=== PATIENT | male | born 1990 | race Caucasian/White ===

== ENCOUNTER 2020-08-13 11:43 | Day surgery (SDC) | payer SELFPAY ==
[2020-08-13] MEDS ORDERED: Dexamethasone 20 MG/5 ML VIAL ONE (12:04)
[2020-08-13] MEDS ORDERED: PROPOFOL 200 MG/20 ML VIAL ONE (12:04)
[2020-08-13] MEDS ORDERED: Ondansetron PF 4 MG/2 ML Vial ONE (12:04)
[2020-08-13] MEDS ORDERED: Lidocaine 1% PF 5 ML VIAL ONE (12:04)
[2020-08-13] MEDS ORDERED: Ketorolac Tromethamine 30 MG/ML VIAL ONE (12:04)
[2020-08-13] MEDS ORDERED: Fentanyl 100 MCG/2 ML VIAL ONE (13:32)
[2020-08-13] MEDS ORDERED: Lidocaine 1% (PF) 30 ML VIAL ONE (13:52)
[2020-08-13] MEDS ORDERED: Bupivacaine 0.25% HCL 30 ML VIAL ONE (13:52)
--- NOTE | 2020-08-13 14:34 | RAD ---
Left hand 2 views intraoperative fluoroscopy HISTORY: Metallic foreign body. FINDINGS: Intraoperative fluoroscopy was provided for intraoperative procedure as performed by Dr. Gurjit keane. Spot fluoroscopic images of the index finger reveal no persistent metallic foreign body (as seen on radiograph from 08/12/2020). Fluoroscopy time 4 seconds.
--- NOTE | 2020-08-13 15:48 | OP ---
DATE OF PROCEDURE: 08/13/2020 PREOPERATIVE DIAGNOSIS: Left index finger cellulitis and associated foreign body. POSTOPERATIVE DIAGNOSES: 1. Left index finger cellulitis. 2. Left index finger metallic foreign body. PROCEDURE: 1. Incision drainage and washout, left index finger abscess. 2. Removal of metallic foreign body, left index finger. ANESTHESIA: Local and general. TOURNIQUET TIME: 11 minutes. ESTIMATED BLOOD LOSS: Less than 5 mL. FINDINGS: There appeared to be hypothermic needle tip imbedded within the soft tissues over the dorsum of the left index finger proximal phalangeal region. There is mild purulence associated and surrounding the metallic foreign body superficial to the extensor tendon mechanism around the proximal phalangeal region of the left index finger. SPECIMENS: Culture and sensitivities as well as metallic foreign body needle tip. CONDITION: Stable. INDICATIONS FOR PROCEDURE: The patient is a 30-year-old right-hand dominant male who works at [employer]. He states that he was building a snowman over the weekend when he felt something metallic break off into the skin. He was seen at the [facility] ER Dr. Catia Laura; secured the patient and gave me a call. Worried about cellulitis of the left index finger as the patient was complaining of redness and swelling and pain in the left index finger. He took an x-ray, which showed a metallic foreign body in the left index finger. The patient followed up in my clinic 1st thing this morning. I recommended surgical incision and drainage of the left index finger as well as removal of the metallic foreign body. I discussed all risks and goals associated with the surgery. On clinical examination, the patient had ecchymosis over the volar flexor forearm and there were old healed scars over the left forearm as well as the right forearm. His upper extremities were covered in tattoos as well. There is a point tenderness to the left index finger dorsum around the proximal phalangeal region. There is surrounding erythema around the puncture wound. There is no clinical evidence of flexor tenosynovitis. There was no adenopathy appreciated within the elbow, epitrochlear, or the axillary region. I did not offer any guarantees after today's surgery nor were any implied. The patient voiced understanding and agreed to proceed. He was given preoperative antibiotics. DESCRIPTION OF PROCEDURE: He was brought to the operating room, placed supine on the operating room table. Time-out was performed. Anesthesia was induced by the anesthesia team. A left upper extremity tourniquet was applied. The left upper extremity was prepped and draped under sterile aseptic conditions. Left upper extremity was exsanguinated by gravity and the tourniquet was inflated to 250 mmHg. 1% plain and 4% plain lidocaine and bupivacaine mixture were then infiltrated into the skin around the puncture wound and used as local anesthetic. I used a 15 blade scalpel to longitudinally incise the skin around the puncture wound, left index finger dorsum proximal phalangeal region. There was purulence noted within the soft tissues. This was sent for culture and sensitivities. I then noted a metallic foreign body which was removed using a mosquito clamp. It was removed in its entirety. It appeared to have the appearance of a hypodermic needle which was bent and broken. C-arm was used to confirm complete removal of the foreign body and its multiple planes of view were taken and saved by the C-arm. The wound was irrigated thoroughly using sterile saline solution. I packed the wound and closed it loosely with a 4-0 nylon suture and packed it with iodoform quarter-inch packing. The tourniquet was deflated. All fingers including the left index finger resumed a normal pink color with good refill. Xeroform was applied over the wound along with big bulky dressing. The patient was given Bactrim yesterday in the ER. He stated that he filled his prescription today. I instructed him to take Bactrim for at least 7 days. He was given a script for Tylenol with Codeine, Tylenol No. 3 one to two tabs p.o. q.6 hours p.r.n. pain, 30 pills were prescribed. He will see me in the clinic either or Tuesday of this week and we remove the packing and redress the wound. The patient was extubated and transported back to recovery area in stable condition and tolerated the procedure well. Please CC a copy of this operative report dictation to Dr. Lillie Laura ER Physician [facility] Job ID: [id number] [facility]
== END 2020-08-13 15:40 | disposition home or self-care (01) ==
LOC: SDC 11:43
PROVIDERS: ATTEND Surgery Surgery of the Hand
PROC: 0H9GXZZ Drainage of Left Hand Skin, External Approach (ICD-10-PCS; principal; 2020-08-13)
DX: S60.451A Superficial foreign body of left index finger, initial encounter (principal); L03.012 Cellulitis of left finger; B95.61 Methicillin susceptible Staphylococcus aureus infection as the cause of diseases classified elsewhere; F17.210 Nicotine dependence, cigarettes, uncomplicated
CPT/HCPCS: 76000; 87070; 87077; 87186; 87205; J0690; J1100; J1885; J2001; J2405; J2704; J3010; S0020